=== PATIENT | female | born 1970 ===

== ENCOUNTER 2021-08-08 06:20 | Day surgery (SDC) | payer OTHER ==
[~2021-08-08 06:20] MED LIST: LIPITOR20 MG PO
[2021-08-08] MEDS ORDERED: PERCOCET 5-3251 EACH PO (09:29)
== END 2021-08-08 13:05 | disposition home or self-care (01) ==
LOC: CIR.AMB 06:20
PROVIDERS: ATTEND Surgery
DX: D35.1 Benign neoplasm of parathyroid gland (principal); Z20.822 Contact with and (suspected) exposure to COVID-19